=== PATIENT | female | born 1965 | race African-American/Black ===

== ENCOUNTER 2019-06-19 14:00 | Emergency (ER) | payer OTHER ==
[~2019-06-19] VITALS: Ht 157.5 cm; Wt 64.0 kg
[2019-06-19] MEDS ORDERED: LOSA25TA26 PO (14:08)
[2019-06-19] MEDS ORDERED: INSU100I28 SQ (14:08)
[2019-06-19] MEDS ORDERED: VALACYCLOVIR HCL 500MG TABLET PO STA (14:19)
[2019-06-19] MEDS ORDERED: PREDNISONE 20MG TABLET PO ONE (14:30)
[2019-06-19 18:40] VITALS: BP 129/74
== END 2019-06-19 18:45 | disposition home or self-care (01) ==
LOC: ER 14:00
DX: G51.0 Bell's palsy (principal); E11.9 Type 2 diabetes mellitus without complications; I10 Essential (primary) hypertension; Z79.4 Long term (current) use of insulin
CPT/HCPCS: 99283; J7512